=== PATIENT | male | born 1960 | race Caucasian/White ===

== ENCOUNTER 2024-03-26 12:02 | Emergency (ER) | payer OTHER ==
[2024-03-26 12:09] VITALS: RESP 18
--- NOTE | 2024-03-26 12:43 | ED ---
Back Pain HPI - General Chief Complaint: Back Pain/Injury Stated Complaint: back pain into R leg Time Seen by Provider: 03/26/24 12:12 Source: patient Mode of arrival: ambulatory Limitations: no limitations - History of Present Illness Initial Comments: This is a 63-year-old male who presents to the emergency department for right back and leg pain. Patient states that he lives in [place] and has been in from out of town for the last week. shortly after arriving he started to develop pain in the right buttocks going down the right leg, particularly into the thigh. Denies any known injuries. He has been riding his Peloton and carrying heavy things and wonders if that may be contributing to this. However, he is also concerned about a blood clot. He has a history of sciatica, but states that it feels different. Family is also concerned about him taking excessive doses of anti-inflammatories, as he has had some damage to his kidneys from mult iple CTs with IV contrast during his cancer treatment. Denies any loss of bowel/bladder control or saddle anesthesia. His son did give him some of his muscle relaxants to try and states that it seemed to help him sleep. MD Complaint: back pain - Related Data Previous Rx's Medication Instructions Recorded Cyclobenzaprine [Flexeril] 10 mg PO TID PRN #30 tab 03/26/24 predniSONE 50 mg PO DAILY 5 Days #5 tab 03/26/24 Allergies Allergy/AdvReac Type Severity Reaction Status Date / Time Penicillins Allergy Rash/Hives Verified 03/26/24 12:09 Review of Systems ROS Statement: Those systems with pertinent positive or pertinent negative responses have been documented in the HPI. ROS Other: All systems not noted in ROS Statement are negative. 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 Absent: respiratory distress, wheezes, rales, rhonchi, stridor Cardiovascular Exam: Present: regular rate, normal rhythm, normal heart sounds. Absent: systolic murmur, diastolic murmur, rubs, gallop, clicks Extremities exam: Present: other (No swelling or erythema of the right lower extremity. Full range of motion. 2+ DP and PT pulses). Absent: calf tenderness Back exam: Present: other (No tenderness to palpation in the lower lumbar spine.) Neurological exam: Present: alert, oriented X3, CN II-XII intact Psychiatric exam: Present: normal affect, normal mood Skin exam: Present: warm, dry, intact, normal color. Absent: rash Course Vital Signs 03/26/24 03/26/24 12:03 14:36 Temperature 98.2 F 98.0 F Pulse Rate 68 52 L Respiratory 18 18 Rate Blood Pressure 151/85 130/80 O2 Sat by Pulse 97 97 Oximetry Medical Decision Making - Medical Decision Making This is a 63-year-old female who presents to the emergency department for back pain and leg pain. Was pt. sent in by a medical professional or institution? @ -No Did you speak to anyone other than the patient for history? @ -No Did you review nursing and triage notes? @ -Yes, and I agree, it is accurate with regards to the patient's symptoms. Were old charts reviewed? @ -No Differential Diagnosis? @ -Differential Back Pain: Strain, zoster, cauda equina syndrome, epidural abscess, vertebral osteomyelitis, discitis, fracture, subluxation, disc herniation, DJD, spinal stenosis, dissection, AAA, pancreatitis, peptic ulcer disease, pyelonephritis, kidney stone, this is not meant to be an all-inclusive list. EKG interpreted by me (3pts min.)? @ -Not obtained X-rays interpreted by me (1pt min.)? @ -Not obtained CT interpreted by me (1pt min.)? @ -CT scan of the lumbar spine obtained. My interpretation identifies no acute fractures. U/S interpreted by me (1pt. min.)? @ -Duplex ultrasound of the right lower extremity obtained. My interpretation identifies no evidence of a DVT. What testing was considered but not performed? (CT, X-rays, U/S, labs)? Why? @ -None What meds were considered but not given? Why? @ -None Did you discuss the management of the patient with other professionals? @ -No Did you reconcile home meds? @ -No Was smoking cessation discussed for >3mins.? @ -No Was critical care preformed (if so, how long)? @ -No Were there social determinants of health that impacted care today? How? (Homelessness, low income, unemployed, alcoholism, drug addiction, transportation, low edu. Level, literacy, decrease access to med. care, [facility], rehab)? @ -No Was there de-escalation of care discussed even if they declined? (Discuss DNR or withdrawal of care, Hospice)? @ -No What co-morbidities impacted this encounter? (DM, HTN, Smoking, COPD, CAD, Cancer, CVA, Hep., AIDS, mental health diagnosis, sleep apnea, morbid obesity)? @ -Hx of cancer Was patient admitted / discharged? @ -Discharged. CT scan of the lumbar spine obtained revealing no acute process. Duplex ultrasound of the right lower extremity obtained as well as revealing no acute findings. Symptoms likely related to sciatica or lumbar radiculopathy. Pain was treated in the emergency department. Prescription for prednisone and Flexeril provided. Otherwise advised follow-up with his PCP for reevaluation. Patient discharged home in stable condition. Case discussed with ED attending, Dr. Garcia. Return precautions reviewed in depth, the patient is instructed to return to the emergency department with any new, worsening, or concerning symptoms. Patient verbalized understanding. Undiagnosed new problem with uncertain prognosis? @ -None Drug Therapy requiring intensive monitoring for toxicity (Heparin, Nitro, Insulin, Cardizem)? @ -None Were any procedures done? @ -None Diagnosis/symptom? @ -Acute low back pain, right lumbar radiculopathy Acute, or Chronic, or Acute on Chronic? @ -Acute Uncomplicated (without systemic symptoms) or Complicated (systemic symptoms)? @ -Uncomplicated Side effects of treatment? @ -None Exacerbation, Progression, or Severe Exacerbation] @ -Not applicable Poses a threat to life or bodily function? @ -No - Radiology Data Radiology results: report reviewed, image reviewed Disposition Clinical Impression: Strain of lumbar region, Right lumbar radiculopathy Disposition: HOME SELF-CARE Instructions (If sedation given, give patient instructions): Acute Low Back Pain (ED), Lumbar Radiculopathy (ED) Additional Instructions: Return to the emergency department with any new, worsening, or concerning symptoms. Take the prednisone daily for 5 days. You can take the Flexeril up to 3 times daily as needed. Your medication was sent to the [facility] at [address] in [place]. Prescriptions: Cyclobenzaprine [Flexeril] 10 mg PO TID PRN #30 tab PRN Reason: Pain predniSONE 50 mg PO DAILY 5 Days #5 tab Is patient prescribed a controlled substance at d/c from ED?: No Referrals: Nonstaff,Physician [Primary Care Provider] - 1-2 days Time of Disposition: 14:20
[2024-03-26] MEDS: DEXAMETHASONE SOD PHOSPHATE 10 MG/ML 1 ML VIAL IM STA (13:04)
[2024-03-26] MEDS: ORPHENADRINE 30 MG/ML 2 ML VIAL IM STA (13:04)
[2024-03-26] MEDS: HYDROcodone/APAP 7.5-325MG 1 EACH TAB PO ONE (13:06)
--- NOTE | 2024-03-26 13:49 | CT ---
EXAMINATION TYPE: CT lumbar spine wo con DATE OF EXAM: 03/26/2024 1:24 PM COMPARISON: None. CLINICAL INDICATION: Male, 63 years old with history of Lower back pain; PHH, low back pain, lifting injury TECHNIQUE: Multiple axial images were obtained from the midportion of T11 through the sacroiliac cindy nts. Soft tissue and bone windows in coronal and sagittal planes were obtained and reviewed. Contrast used: mL of , (None, if empty). Oral contrast used: (None, if empty). CT DLP: 1574.6 mGycm, Automated exposure control for dose reduction was used. FINDINGS: Alignment: There are 5 lumbar type vertebral bodies within normal alignment. Bone: No evidence of fracture is identified. Multilevel degeneration changes with osteophyte formati on, disc space narrowing, facet joint arthropathy. There is transitional vertebrae at L5 with pseudo arthrosis of the transverse processes with the sacrum. Discs: T12-L1: No spinal canal or neural foraminal stenosis is identified. L1-L2: No spinal canal or neural foraminal stenosis is identified. L2-L3: No spinal canal or neural foraminal stenosis is identified. L3-L4: No spinal canal or neural foraminal stenosis is identified. L4-L5: No spinal canal or neural foraminal stenosis is identified. L5-S1: No spinal canal or neural foraminal stenosis is identified. Other: Postsurgical clips in the retroperitoneum around the aorta and the upper abdomen. The appendix is normal. IMPRESSION: 1. No evidence for spinal fracture. 2. Mild degeneration changes throughout the spine. 3. 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 [facility], , 03/26/2024 1:46 PM
--- NOTE | 2024-03-26 13:55 | US ---
EXAMINATION TYPE: US venous doppler duplex LE RT DATE OF EXAM: 03/26/2024 12:35 PM COMPARISON: NONE CLINICAL INDICATION: Male, 63 years old with history of Leg pain; Back pain that radiates down right leg, Pain TECHNIQUE: The lower extremity deep venous system is examined utilizing real time linear array sonog barbara with graded compression, color doppler sonography, and spectral doppler. SIDE PERFORMED: Right FINDINGS: VESSELS IMAGED: Common Femoral Vein Deep Femoral Vein Greater Saphenous Vein * Femoral Vein Popliteal Vein Small Saphenous Vein * Proximal Calf Veins (* superficial vessels) Right Leg: Negative for DVT, Color Doppler imaging shows patency of the vessels. Spectral waveforms are within normal limits. IMPRESSION: No ultrasound evidence for deep venous thrombosis. [facility], , 03/26/2024 1:53 PM
[2024-03-26] MEDS: ACET/COD 300 MG/30 MG STARTER PACK 6 TAB BTL PO STA (14:25)
[2024-03-26] MEDS: traMADol 50 MG STARTER PACK 3 TAB BTL PO STA (14:31)
[2024-03-26 14:40] VITALS: BP 130/80; PULSE 52; TEMP 98
== END 2024-03-26 14:40 | disposition home or self-care (01) ==
LOC: EC 12:02
DX: S39.012A Strain of muscle, fascia and tendon of lower back, initial encounter (principal); M54.16 Radiculopathy, lumbar region; Z88.0 Allergy status to penicillin; Z85.9 Personal history of malignant neoplasm, unspecified
CPT/HCPCS: 93971; 72131; 99284; 96372 ×2; J1100; J2360